=== PATIENT | female | born 1980 | race Caucasian/White ===

== ENCOUNTER 2017-07-27 22:13 | Emergency (ER) | payer MEDICAID ==
[~2017-07-27] VITALS: Ht 160 cm; Wt 115.0 kg
[~2017-07-27 22:13] MED LIST: OFLO1DRO8 RIGHT EYE
[2017-07-27 22:16] VITALS: BP 149/84; PULSE 96; RESP 16; TEMP 98.4; O2SAT 96
[2017-07-27] MEDS ORDERED: LIDOCAINE HCL 1% 30 ML VIAL INFIL ONE (22:45)
[2017-07-27] MEDS ORDERED: LIDOCAINE HCL 1% 50 ML VIAL INFIL ONE (22:45)
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
[2017-07-27] MEDS ORDERED: LIDOCAINE HCL 1% 20 ML VIAL INFIL ONE (23:00)
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
[2017-07-27] MEDS ORDERED: BACITRACIN TOP OINT 15 GM TUBE TOPICAL ONE (23:45)
[2017-07-27] MEDS ORDERED: IBUP-232 PO (23:51)
[2017-07-27] MEDS ORDERED: TYLETAB34 PO (23:51)
== END 2017-07-28 00:06 | disposition home or self-care (01) ==
LOC: NEPD 22:13
DX: S51.012A Laceration without foreign body of left elbow, initial encounter (principal); X99.9XXA Assault by unspecified sharp object, initial encounter
CPT/HCPCS: 12032; 73080